=== PATIENT | female | born 1995 | race Caucasian/White ===

== ENCOUNTER 2022-09-21 00:55 | Emergency (ER) | payer OTHER, MEDICAID ==
[2022-09-21] MEDS ORDERED: Acetaminophen 325 MG Tab PO ONE (01:05)
[2022-09-21] MEDS ORDERED: Diphtheria,Pertussis(Acell),Tetanus Vaccine 0.5 ML Syringe IM ONE (01:05)
[2022-09-21] MEDS ORDERED: Lidocaine/Epineph/Tetracaine 3 ML Syringe TOP ONE (01:05)
[2022-09-21 01:28] VITALS: BP 144/96; PULSE 86
== END 2022-09-21 03:00 | disposition home or self-care (01) ==
LOC: MW.ED 00:55
DX: S90.32XA Contusion of left foot, initial encounter (principal); J45.909 Unspecified asthma, uncomplicated; Z79.899 Other long term (current) drug therapy; V86.95XA Unspecified occupant of 3- or 4- wheeled all-terrain vehicle (ATV) injured in nontraffic accident, initial encounter; Y92.410 Unspecified street and highway as the place of occurrence of the external cause
CPT/HCPCS: 12001; 99283; A9270

== ENCOUNTER 2024-11-26 21:28 | Observation (INO) | payer BC ==
[2024-11-26] MEDS ORDERED: Sodium Chloride 0.9% 2.5 ML Syringe FLUSH PRN (21:36)
[2024-11-26] MEDS ORDERED: Sodium Chloride 0.9% 10 ML Syringe FLUSH PRN (21:36)
[2024-11-26] MEDS: Midazolam 1 MG/ML 2 ML SDV IVPUSH ONE ×2 (21:44→21:54)
[2024-11-26] MEDS: Midazolam 1 MG/ML 2 ML SDV ONE (21:45)
[2024-11-26 22:19] LABS: BASOPHILS ABSOLUTE AUTO 0.04 K/uL (0.00-0.20); BASOPHILS PERCENT AUTO 0.3 % (0.0-1.0); EOSINOPHILS ABSOLUTE AUTO 0.06 K/uL (0.00-0.45); EOSINOPHILS PERCENT AUTO 0.4 % (0.0-6.0); IMMATURE GRAN ABSOLUTE AUTO 0.09 K/uL (0.00-0.05); IMMATURE GRAN PERCENT AUTO 0.6 % (0.0-0.4); LYMPHOCYTES ABSOLUTE AUTO 2.65 K/uL (1.00-4.80); LYMPHOCYTES PERCENT AUTO 17.9 % (24.0-44.0); MEAN PLATELET VOLUME 9.9 fL (9.4-12.3); MONOCYTES ABSOLUTE AUTO 0.60 K/uL (0.00-0.80); MONOCYTES PERCENT AUTO 4.1 % (0.0-8.0); NEUTROPHILS ABSOLUTE AUTO 11.36 K/uL (1.80-7.70); NEUTROPHILS PERCENT AUTO 76.7 % (41.0-71.0); NRBC ABSOLUTE 0.00 K/uL (0.00-0.02); NRBC PERCENT 0.0 /100WBC (0.0-0.2); PLATELET COUNT,PLT 270 K/uL (150-400); RED BLOOD CELL COUNT 4.61 M/uL (4.10-5.30); WHITE BLOOD CELL COUNT,WBC 14.80 K/uL (3.9-11.3)
[2024-11-26] MEDS: Iopamidol 755 MG/ML 500 ML Multipack Bottle IVPUSH ONE (22:32)
[2024-11-26 22:49] LABS: A/G RATIO 1.2 (0.9-1.6); ALANINE AMINOTRANSFERASE,ALT 78 IU/L (14-63); ASPARTATE AMNIOTRANSFERASE,AST 55 IU/L (15-37); BILIRUBIN TOTAL 0.4 mg/dL (0.2-1.0); BLOOD UREA NITROGEN,BUN 10 mg/dL (7.0-18.0); CARBON DIOXIDE,CO2 23.0 mmol/L (21.0-32.0); CHLORIDE,CL 106 mmol/L (98-107); CREATINE KINASE,CK 100 U/L (26-308); CREATININE 0.9 mg/dL (0.6-1.0); ESTIMATED GFR 90 mL/min (>60); ETHANOL BLOOD MEDICAL 13 mg/dL; GLUCOSE RANDOM 96 mg/dL (74-106); POTASSIUM,K 3.5 mmol/L (3.5-5.1); PROTEIN TOTAL,TP 7.9 g/dL (6.4-8.2); SODIUM,NA 141 mmol/L (136-145)
[2024-11-26 22:55] LABS: APPEARANCE,URINE CLEAR; GLUCOSE,URINE NEGATIVE (NEGATIVE); OCCULT BLOOD,URINE NEGATIVE (NEGATIVE)
[2024-11-26 23:05] LABS: AMPHETAMINES SCREEN, URINE NEGATIVE (CUTOFF=500); BUPRENORPHINE SCREEN,URINE NEGATIVE (CUTOFF=10); METHADONE SCREEN, URINE NEGATIVE (CUTOFF=200); METHAMPHETAMINES SCREEN, URINE NEGATIVE (CUTOFF=500); OXYCODONE SCREEN,URINE NEGATIVE (CUT0FF=100); PCP SCREEN,URINE NEGATIVE (CUTOFF=25); THC SCREEN,URINE 20 NG/ML NEGATIVE (CUTOFF=50)
[2024-11-26 23:10] LABS: EPITHELIAL CELLS,URINE OCCASIONAL (NONE-FEW)
[2024-11-27] MEDS ORDERED: diphenhydrAMINE 50 MG/ML SDV IVPUSH PRN (01:11)
[2024-11-27] MEDS: Ketorolac 30 MG/ML SDV IVPUSH SCH (01:57)
[2024-11-27] MEDS: Acetaminophen/oxyCODONE 325-5 MG Tab PO PRN (05:08)
[2024-11-28 11:07] VITALS: BP 139/86; PULSE 85
== END 2024-11-28 12:25 | disposition home or self-care (01) ==
LOC: MW.ED 21:28 → MW.MS 11-27 01:02
PROVIDERS: ADMIT Surgery; ATTEND Surgery
DX: S32.599A Other specified fracture of unspecified pubis, initial encounter for closed fracture (principal); R26.2 Difficulty in walking, not elsewhere classified; Z79.899 Other long term (current) drug therapy; V86.59XA Driver of other special all-terrain or other off-road motor vehicle injured in nontraffic accident, initial encounter
CPT/HCPCS: 36415; 70450; 71045; 71260; 72125; 72170; 73552; 74177; 80053; 80305; 80307; 81001; 82550; 83605; 83690; 84484; 84703; 85025; 86850; 86900; 86901; 93005; 96361; 96374; 96375; 96376; 97116; 97161; 97530; 99285; A9270; G0378; J1171; J1885; J2250; J7030; Q9967; 93010